=== PATIENT | male | born 1975 | race Caucasian/White ===

== ENCOUNTER → 2020-06-13 | Outpatient (CLI) | payer MEDICARE, OTHER ==
[~2020-06-13] MED LIST: ALDACTONE 25MG25 MG PO; LASIX40 MG PO; LIBRIUM CAP 2525 MG PO; MAG-OX 400 TAB400 MG PO; PREDNISONE10 MG PO; PROTONIX 40 MG40 M1 PO; TAB-A-VITE1 EACH PO
[2020-06-13 15:30] LABS: HEMOGLOBIN 12.7 gm/dl (14.0-17.5); RED BLOOD COUNT 3.96 M/UL (4.20-5.50); WHITE BLOOD COUNT 7.9 K/UL (4.5-11.0)
[2020-06-13 15:52] LABS: BUN/CREATININE RATIO 13 (0-10)
== END ==
LOC: LAB 15:02
PROVIDERS: Nurse Practitioner Acute Care
DX: K74.60 Unspecified cirrhosis of liver (principal); R18.8 Other ascites; R74.8 Abnormal levels of other serum enzymes; K72.90 Hepatic failure, unspecified without coma; R63.4 Abnormal weight loss
CPT/HCPCS: 36415; 80053; 85027

== ENCOUNTER → 2020-06-24 | Outpatient (CLI) | payer MEDICARE, OTHER ==
[2020-06-24 13:48] LABS: HEMOGLOBIN 12.4 gm/dl (14.0-17.5); RED BLOOD COUNT 3.91 M/UL (4.20-5.50); WHITE BLOOD COUNT 8.6 K/UL (4.5-11.0)
[2020-06-24 14:22] LABS: BUN/CREATININE RATIO 23 (0-10)
[2020-06-25 17:12] LABS: FINAL INTERPRETATION Negative (.); HIV 1 AB Negative (Negative); HIV 2 AB Negative (Negative)
== END ==
LOC: LAB 13:12
PROVIDERS: Nurse Practitioner Acute Care
DX: K74.60 Unspecified cirrhosis of liver (principal); R18.8 Other ascites; R74.8 Abnormal levels of other serum enzymes; K72.90 Hepatic failure, unspecified without coma; R63.4 Abnormal weight loss
CPT/HCPCS: 36415; 80053; 85027; 85610; 86701; 86702